=== PATIENT | male | born 1965 | race Caucasian/White ===

== ENCOUNTER 2023-03-28 16:39 | Emergency (ER) | payer OTHER, SELFPAY ==
[2023-03-28] VITALS (12 sets, daily range): BP systolic 128–198; BP diastolic 68–88; PULSE 74–85; RESP 10–17; TEMP 36.7; O2SAT 92–98; BMI 40.6
--- NOTE | 2023-03-28 17:13 | DI.RAD.S_ITS ---
PROCEDURE: XR CHEST 1V INDICATIONS: chest pain TECHNIQUE: One view of the chest was acquired. COMPARISON: [facility], CR, XR CHEST 1 VIEW, 09/20/2022, 23:26. FINDINGS: Surgical changes and devices: A thoracic spine stimulator is seen. Lungs and pleura: An incomplete inspiratory result is noted, causing a crowded appearance to the lung markings. Mild generalized interstitial prominence can be seen. No pneumothorax or significant pleural effusions are seen. Mediastinum: The cardiac contours are within normal limits. The aorta demonstrates calcification and tortuosity. Bones and chest wall: No suspicious bony lesions. Age-appropriate bony degenerative changes are seen. Overlying soft tissues appear unremarkable. IMPRESSION: Low lung volumes with mild interstitial prominence. Please consider mild pulmonary edema versus artifact. Dictated by: Rohith Chavez M.D. on 03/28/2023 at 16:55 Approved by: Rohith Chavez M.D. on 03/28/2023 at 16:56
[2023-03-28 17:42] LABS: Prothrombin Time 11.5 SECONDS (10.1-12.7)
[2023-03-28 17:45] LABS: PTT Partial Thromboplastin Tim 35 SECONDS (26-36)
[2023-03-28 17:47] LABS: Add Manual Diff / Slide Review NO; Basophils Absolute Auto 100 /uL (0-100); Basophils Percent Auto 0.8 % (0-2); Eosinophils Absolute Auto 300 /uL (0-450); Eosinophils Percent Auto 2.1 % (2-4); Hemoglobin 13.8 g/dL (13.5-17.5); Lymphocytes Absolute Auto 3900 /uL (1100-4500); Lymphocytes Percent Auto 24.7 % (25-40); Mean Corpuscular HGB Conc 34.6 % (30-36); Mean Corpuscular Hemoglobin 30.9 PG (26-34); Mean Corpuscular Volume 89.3 fL (80-100); Monocytes Absolute Auto 1000 /uL (0-900); Monocytes Percent Auto 6.3 % (3-14); Neutrophils Absolute Auto 10300 /uL (1500-7000); Neutrophils Percent Auto 66.1 % (50-75); Platelet Count 331 X10^3/uL (150-400); Red Blood Cell Count 4.48 X10^6/uL (4.5-5.9); Red Cell Distribution Width 13.1 % (11.6-14.8); White Blood Cell Count 15.6 X10^3/uL (4.5-11.0)
[2023-03-28 17:48] LABS: Alanine Aminotransferase 24 IU/L (<50); Albumin 4.6 g/dL (3.5-5.0); Albumin Globulin Ratio 1.2 (1.0-2.8); Alkaline Phosphatase 86 U/L (38-126); Aspartate Aminotransferase 23 IU/L (17-59); BUN Creatinine Ratio 15.7 (6-22); Bilirubin Total 0.7 mg/dL (0.2-1.3); Blood Urea Nitrogen 14 mg/dL (9-20); Calcium 8.7 mg/dL (8.4-10.2); Carbon Dioxide 30 mmol/L (22-32); Chloride 101 mmol/L (98-107); Creatine Kinase 129 U/L (55-170); Estimated Glomerular Filt Rate > 60 mL/min (>60); Globulin 3.9 g/dL (1.7-4.1); Glucose 100 mg/dL (70-100); HEMOLYSIS < 15 (0-50); Lipase 196 U/L (23-300); Magnesium 2.1 mg/dL (1.6-2.3); Potassium 3.8 mmol/L (3.4-5.1); Sodium 138 mmol/L (137-145); Total Protein 8.5 g/dL (6.3-8.2)
[2023-03-28 17:59] LABS: Troponin I < 0.012 ng/mL (0.01-0.034)
[2023-03-28] MEDS: MORPHINE 4 MG/ML INJ IV (18:18)
--- NOTE | 2023-03-28 19:18 | DI.CT.S_ITS ---
PROCEDURE: CT ANGIO CHEST PE PROTOCOL INDICATIONS: chest pain, back pain, hx PE, feels similar TECHNIQUE: After the administration of intravenous contrast, 2 mm thick sections acquired from the pulmonary apices to the posterior costophrenic angles. 3-dimensional maximum intensity projection (MIP) coronal and sagittal reformats were then acquired through the thorax. For radiation dose reduction, the following was used: automated exposure control, adjustment of mA and/or kV according to patient size. COMPARISON: None. FINDINGS: Image quality: Excellent. Pulmonary arteries: Pulmonary arteries are normal in size, and demonstrate no intraluminal filling defects to suggest central pulmonary embolism. Lungs and pleura: No pleural effusions or pneumothorax. Central and peripheral airways are patent. Bibasilar atelectasis. Lungs are otherwise clear. No focal airspace disease. No septal thickening or nodularity. Mediastinum: Heart size is normal, without pericardial effusion. No mediastinal or hilar adenopathy. Thoracic aorta is normal in caliber and enhancement. Esophagus is normal in caliber, without hiatal hernia. No evidence for acute right-sided heart strain. Bones and chest wall: No suspicious bony lesions. Ribs and thoracic spine appear intact throughout. Thyroid gland is unremarkable. No axillary or supraclavicular adenopathy. Abdomen: Visualized upper abdominal solid organs appear normal in the early arterial phase of enhancement. IMPRESSION: No acute pulmonary emboli. No acute cardiopulmonary abnormalities. No evidence for acute right-sided heart strain No acute airspace disease. Dictated by: Jc Layton M.D. on 03/28/2023 at 19:58 Approved by: Jc Layton M.D. on 03/28/2023 at 20:03
[2023-03-28] MEDS: HYDROMORPHONE 1 MG INJ IV (19:32)
--- NOTE | 2023-03-28 21:46 | ED.CHESTPAIN ---
HPI - Chest Pain General Chief Complaint: Chest Pain Stated Complaint: Chest/Back pain, hurts when breathing Time Seen by Provider: 03/28/23 18:17 Source: patient Mode of arrival: Ambulatory History of Present Illness HPI narrative: 57-year-old male smoker with history of extensive back surgeries including lumbar fusion and spinal stimulator presents with a few days of severe left posterior thoracic pain that wraps around his left side. His pain is sharp and stabbing and made worse by palpation deep breaths and motion including his left arm. He states that years ago he developed pulmonary emboli thought to be related to steroid injections for his back and is still anticoagulated. He does mention that on some levels this feels relatively similar. He denies any cough, hemoptysis, shortness of breath or chest pain. He is not dizzy nor weak or lightheaded. He denies any rash. Related Data Previous Rx's Medication Instructions Recorded diazepam 10 mg tablet (Valium) 10 mg PO TID PRN muscle spasm #20 03/28/23 tabs Allergies Allergy/AdvReac Type Severity Reaction Status Date / Time No Known Drug Allergies Allergy Verified 03/28/23 17:13 Review of Systems Review of Systems Narrative: GENERAL: Denies chills, fatigue, malaise, fever, sweats. HEENT: Denies sinus pain, ear pain, sore throat, difficulty swallowing, dizziness. RESPIRATORY: Denies dyspnea, cough, wheezing, hemoptysis, sputum. CARDIOVASCULAR: Denies chest pain, palpitations, orthopnea, edema, GASTROINTESTINAL: Denies nausea, vomiting, abdominal pain, diarrhea, constipation, melena. : Denies dysuria, frequency, incontinence, hematuria, urinary retention. MUSCULOSKELETAL: See HPI SKIN: Denies rash, skin lesions, or other NEUROLOGIC: Denies weakness, headache, numbness, change in speech, confusion, seizures, incoordination. PSYCHIATRIC: No concerning psychosocial issues. 12 point review of systems is negative except for those stated above Patient History Social History Smoking Status: Current some day smoker Smoking Status: Current some day smoker alcohol intake frequency: other Substance Use Type: does not use Exam Narrative Exam Narrative: GENERAL: [57] year old patient appears stated age. Well-developed patient, in mild distress. HEAD: Atraumatic. Normocephalic. EYES: Pupils equal round and reactive. Extraocular motions intact. No scleral icterus. No injection or drainage. ENT: Nose without bleeding, purulent drainage. Throat without erythema, tonsillar hypertrophy or exudate. Airway patent. NECK: Trachea midline. Non tender CARDIOVASCULAR: Regular rate and rhythm without murmurs, gallops, or rubs. RESPIRATORY: Clear to auscultation. Breath sounds equal bilaterally. No wheezes, rales, or rhonchi. GASTROINTESTINAL: Abdomen soft, non-tender, nondistended. EXTREMITIES: No edema or joint tenderness. BACK: Significant tenderness and palpable spasm medial to the left scapula, lateral to the midline, there is no midline pain, no rash, swelling, erythema. NEURO: AOx3. SKIN: No rash or erythema of visible areas Initial Vital Signs Initial Vital Signs: Vital Signs Temperature 98.1 F 03/28/23 17:09 Pulse Rate 85 03/28/23 17:09 Respiratory Rate 17 03/28/23 17:09 Blood Pressure 198/88 H 03/28/23 17:09 Pulse Oximetry 97 03/28/23 17:09 Oxygen Delivery Method Room Air 03/28/23 17:09 Course Orders Ordered: Discontinued Medications Diazepam (Diazepam 10 Mg/2 Ml Syringe) 5 mg IV NOW ONE Stop: 03/28/23 21:55 Last Admin: 03/28/23 22:04 Dose: 5 mg Documented By: GC Diazepam (Diazepam 10 Mg/2 Ml Syringe) 5 mg IV NOW ONE Stop: 03/28/23 22:31 Last Admin: 03/28/23 22:38 Dose: 5 mg Documented By: GC Hydromorphone HCl (Hydromorphone 1 Mg Inj) 1 mg IV NOW ONE Stop: 03/28/23 19:28 Last Admin: 03/28/23 19:32 Dose: 1 mg Documented By: GC Morphine Sulfate (Morphine 4 Mg/Ml Inj) 4 mg IV NOW ONE Stop: 03/28/23 17:54 Last Admin: 03/28/23 18:18 Dose: 4 mg Documented By: NR Vital Signs Vital signs: Vital Signs - 8 hr 03/29/23 00:01 03/28/23 21:30 03/28/23 21:30 Temperature 97.8 F Pulse Rate 74 77 Respiratory Rate 16 12 Blood Pressure 144/80 H 138/80 Pulse Oximetry 97 94 Oxygen Delivery Method Room Air 03/28/23 22:00 03/28/23 22:00 03/28/23 22:30 Temperature Pulse Rate 76 Respiratory Rate 14 Blood Pressure 147/77 H 144/80 H Pulse Oximetry 95 Oxygen Delivery Method 03/28/23 22:30 Temperature Pulse Rate 77 Respiratory Rate 10 L Blood Pressure Pulse Oximetry 94 Oxygen Delivery Method MDM - Chest Pain Lab Data 03/28/23 17:22 03/28/23 17:22 Labs: Lab Results 03/28/23 03/28/23 03/28/23 Range/Units 17:22 17:22 17:22 WBC 15.6 H (4.5-11.0) X10^3/uL RBC 4.48 L (4.5-5.9) X10^6/uL Hgb 13.8 (13.5-17.5) g/dL Hct 40.0 L (41-53) % MCV 89.3 (80-100) fL MCH 30.9 (26-34) PG MCHC 34.6 (30-36) % RDW 13.1 (11.6-14.8) % Plt Count 331 (150-400) X10^3/uL Neut % (Auto) 66.1 (50-75) % Lymph % (Auto) 24.7 L (25-40) % [place] % (Auto) 6.3 (3-14) % Eos % (Auto) 2.1 (2-4) % Baso % (Auto) 0.8 (0-2) % Neut # (Auto) 09042 H (2513-4594) /uL Lymph # (Auto) 3900 (9060-2216) /uL [place] # (Auto) 1000 H (0-900) /uL Eos # (Auto) 300 (0-450) /uL Baso # (Auto) 100 (0-100) /uL PT 11.5 (10.1-12.7) SECONDS INR 1.0 (0.9-1.3) APTT 35 (26-36) SECONDS Sodium 138 (137-145) mmol/L Potassium 3.8 (3.4-5.1) mmol/L Chloride 101 (98-107) mmol/L Carbon Dioxide 30 (22-32) mmol/L BUN 14 (9-20) mg/dL Creatinine 0.89 (0.66-1.25) mg/dL Estimated GFR > 60 (>60) mL/min BUN/Creatinine Ratio 15.7 (6-22) Glucose 100 (70-100) mg/dL Calcium 8.7 (8.4-10.2) mg/dL Magnesium 2.1 (1.6-2.3) mg/dL Total Bilirubin 0.7 (0.2-1.3) mg/dL AST 23 (17-59) IU/L ALT 24 (<50) IU/L Alkaline Phosphatase 86 (38-126) U/L Total Creatine Kinase 129 (55-170) U/L CK-MB (CK-2) TNP CK-MB (CK-2) Rel Index TNP Troponin I < 0.012 (0.01-0.034) ng/mL Total Protein 8.5 H (6.3-8.2) g/dL Albumin 4.6 (3.5-5.0) g/dL Globulin 3.9 (1.7-4.1) g/dL Albumin/Globulin Ratio 1.2 (1.0-2.8) Lipase 196 (23-300) U/L [facility] Narrative Medical decision making narrative: [57] year old patient presents with left thoracic back pain Multiple etiologies for patient's symptoms considered including, but not limited to: [Muscle spasm versus pulmonary emboli versus spontaneous hematoma versus] Prior Charts reviewed in our EMR Primary Historian: patient Labs reviewed and interpreted by myself: Elevated white blood cells without obvious source. No signs of anemia, electrolytes and renal function without significant abnormalities Imaging reviewed: CT angiogram demonstrates no acute pulmonary embolism, no evidence of right heart strain. Patient's history and physical exam are reassuring. There is an easily in significantly reproducible pain in the paraspinal musculature of the left upper back. No swelling, redness, induration or fluctuance. No evidence of rash to suggest shingles. No soft tissue swelling or subcutaneous emphysema Findings and discharge diagnosis discussed with patient/family followed by verbalization of understanding Return precautions discussed with patient/family whom verbalize understanding of diagnosis and plan Discharge Plan Departure Patient Disposition: Home Clinical Impression: Acute thoracic back pain Instructions: DI for Thoracic Back Pain Activity Restrictions/Additional Instructions: *You have been diagnosed with [acute thoracic back pain. As we discussed your history and physical exam are reassuring as are labs and CT scan. There is no evidence of blood clot, heart attack or other significant diagnosis requiring a specific or immediate intervention] *What to do: *Please continue to take your regular medications as directed. [x ] New medication prescriptions sent to your pharmacy: [facility] ] [ ] New medication written as a paper prescription [ ] No new medications given *Please follow up with your primary care provider in 2-3 days, call for an appointment. Let them know you were seen in the Emergency Department and that we ask that you be seen in follow up. We will electronically transmit a record of today's note if your PCP is in our system *If you do not have a primary care provider please contact the [facility] Resource line at [phone]. They will ask some questions about your medical history and help get you set up with a doctor in the community. *Return to Emergency Department if you should have any new, worsening or concerning symptoms, such as [fever greater than 101 F, shaking chills, worsening pain, persistent vomiting or other bothersome symptoms] Prescriptions: New diazepam [Valium] 10 mg tablet 10 mg PO TID PRN (Reason: muscle spasm) Qty: 20 0RF Stand Alone Forms: Patient Portal/API
[2023-03-28] MEDS: diazePAM 10 MG/2 ML SYRINGE 5 MG IV ×2 (22:04→22:38)
[2023-03-29 00:01] VITALS: BP 144/80; PULSE 74; RESP 16; TEMP 36.6; O2SAT 97
== END 2023-03-29 00:05 | disposition home or self-care (01) ==
PROVIDERS: Emergency Medicine; Emergency Provider Emergency Medicine
DX: M54.6 Pain in thoracic spine (principal); R07.9 Chest pain, unspecified
CPT/HCPCS: 36415; 71045; 71275; 80053; 82550; 83690; 83735; 84484; 85025; 85610; 85730; 93005; 96374; 96375; 96376; 99284; J1170; J2270; J3360; Q9967

== ENCOUNTER 2023-09-09 12:25 | Emergency (ER) | payer OTHER, SELFPAY ==
[2023-09-09 12:28] VITALS: BP 171/90; PULSE 57; RESP 22; TEMP 37.1; O2SAT 97; BMI 37.3
--- NOTE | 2023-09-09 12:35 | DI.RAD.S_ITS ---
PROCEDURE: XR SHOULDER LT MIN 2V INDICATIONS: felt a pop TECHNIQUE: 3 views of the shoulder were acquired. COMPARISON: None. FINDINGS: Bones: No fractures or dislocations. No suspicious bony lesions. Visualized ribs appear intact. Soft tissues: No suspicious soft tissue calcifications. IMPRESSION: No acute bony abnormality. Dictated by: Jose Verma M.D. on 09/09/2023 at 12:28 Approved by: Jose Verma M.D. on 09/09/2023 at 12:28
--- NOTE | 2023-09-09 13:57 | DI.CT.S_ITS ---
PROCEDURE: CT UE LT WO CON INDICATIONS: Left shoulder pain TECHNIQUE: Noncontrast 1-1.5 mm thick sections acquired from the acromioclavicular joint to the inferior scapula, with coronal and sagittal reformatting. COMPARISON: [facility], CR, XR SHOULDER LT MIN 2V, 09/09/2023, 12:37. FINDINGS: Image quality: Excellent. Bones: No acute osseous fracture or dislocation. Mild degenerative changes are seen in the glenohumeral joint with marginal osteophyte formation. There are moderate to severe degenerative changes at the acromioclavicular joint, with joint space narrowing, subchondral sclerosis and subchondral cystic changes, and marginal osteophyte formation. The included left-sided ribs are intact. Soft tissues: No significant glenohumeral effusion. The rotator cuff musculature is normal in bulk. However, the tendons, ligaments, labrum, and articular cartilages are not well evaluated with CT. No axillary lymphadenopathy. The included portions of the left lung are clear. IMPRESSION: 1. No acute osseous fracture. 2. 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 3. Mild glenohumeral osteoarthrosis. Approved by: Robert Ac M.D. on 09/09/2023 at 14:55
[2023-09-09] MEDS: MORPHINE 4 MG/ML INJ IM (14:10)
[2023-09-09] MEDS: CYCLOBENZAPRINE 10 MG TABLET PO (14:10)
[2023-09-09 14:56] VITALS: BP 172/77; PULSE 86; RESP 16; O2SAT 97
[2023-09-09] MEDS: diazePAM 5 MG TABLET 10 MG PO (14:59)
--- NOTE | 2023-09-09 15:45 | ED.UPPEXIN ---
HPI - Extremity Injury (Upper) <Rodri Donald PA-C - Last Filed: 09/09/23 15:59> General Chief Complaint: Extremity Injury, Upper Stated Complaint: L shoulder increasing pain/heard pop T-1/ Time Seen by Provider: 09/09/23 13:03 Source: patient Mode of arrival: Ambulatory History of Present Illness HPI narrative: 58-year-old male with chronic shoulder pain presents to the ED today for a sudden exacerbation of his left shoulder pain. Patient states that he was applying some tiger balm on his left shoulder when he felt a crunch and some tearing pain in his left shoulder. Patient took some Percocet at 10:00 a.m. this morning with little relief. 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 Patient receives routine injections for pain. Patient called his PCP Dr. Morales who sent him to the ED for further evaluation. Patient denies numbness, tingling, weakness. Patient takes tizanidine, Percocet for his aches and pains. Patient states that he was scheduled to have a CT sometime soon since he is unable to have an MRI due to multiple metal implants. Related Data Previous Rx's Medication Instructions Recorded diazepam 10 mg tablet (Valium) 10 mg PO TID PRN muscle spasm #20 03/28/23 tabs Allergies Allergy/AdvReac Type Severity Reaction Status Date / Time No Known Drug Allergies Allergy Verified 03/28/23 17:13 Review of Systems <Rodri Donald PA-C - Last Filed: 09/09/23 15:59> Constitutional Constitutional: Denies chills, Denies fatigue, Denies fever(s), Denies frequent falls, Denies lethargy and Denies weakness Eyes Eyes: Denies change in vision, Denies eye discharge, Denies irritation and Denies loss of vision ENT Ears, Nose, Mouth, and Throat: Denies change in voice, Denies dizziness, Denies neck pain, Denies sore throat and Denies throat swelling Cardiovascular Cardiovascular: Denies chest pain, Denies irregular heart rhythm, Denies lightheadedness, Denies palpitations, Denies dyspnea, Denies dyspnea on exertion and Denies orthopnea Respiratory Respiratory: Denies cough, Denies dyspnea, Denies dyspnea on exertion and Denies wheezing Gastrointestinal Gastrointestinal: Denies abdominal pain, Denies change in bowel habits, Denies diarrhea, Denies nausea and Denies vomiting Musculoskeletal Musculoskeletal: Denies neck pain and Denies numbness Comments: Left shoulder pain Integumentary/Breasts Skin/Breast: Denies pruritus, Denies erythema, Denies rash and Denies wounds Neurologic Neurologic: Denies behavioral changes, Denies confusion, Denies dizziness, Denies frequent falls, Denies loss of vision, Denies numbness and Denies weakness Psychiatric Psychiatric: Denies anxiety, Denies behavioral changes, Denies confusion, Denies depression, Denies homicidal ideation and Denies suicidal ideation Endocrine Endocrine: Denies fatigue, Denies flushing and Denies palpitations Hematologic/Lymphatic Hematologic/Lymphatic: Denies easy bruising Allergic/Immunologic Allergic/Immunologic: Denies urticaria, Denies throat swelling and Denies wheezing Patient History <Rodri Donald PA-C - Last Filed: 09/09/23 15:59> Social History Smoking Status: Current some day smoker Smoking Status: Current some day smoker tobacco type: cigarettes alcohol intake frequency: other Substance Use Type: does not use Exam <Rodri Donald PA-C - Last Filed: 09/09/23 15:59> Narrative Exam Narrative: Const General:?cooperative, healthy appearing and comfortable [facility] Head:?normal to inspection Ears:?hearing grossly normal bilaterally Nose:?external nose normal Face and sinus:?normal facial exam and sinuses nontender Mouth:?oral mucosae normal Throat:?posterior oropharynx normal Eyes General:?appearance normal, both eyes and all related structures Neck Neck:?normal visual inspection and no lymphadenopathy noted Resp Effort & Inspection:?normal respiratory effort Auscultation:?clear to auscultation bilaterally Cardio Rate:?regular rate Rhythm:?regular rhythm Musculoskeletal Tenderness to palpation of acromioclavicular region. No bruising or deformities. Limited range of motion due to pain. Strength and sensation intact. Patient is neurovascularly intact. Neuro General:?patient alert, patient awake and patient oriented x3 Initial Vital Signs Initial Vital Signs: Vital Signs Temperature 98.7 F 09/09/23 12:28 Pulse Rate 57 L 09/09/23 12:28 Respiratory Rate 22 09/09/23 12:28 Blood Pressure 171/90 H 09/09/23 12:28 Pulse Oximetry 97 09/09/23 12:28 Oxygen Delivery Method Room Air 09/09/23 12:28 <Verito Valladares MD - Last Filed: 09/09/23 16:15> Initial Vital Signs Initial Vital Signs: Vital Signs Temperature 98.7 F 09/09/23 12:28 Pulse Rate 57 L 09/09/23 12:28 Respiratory Rate 22 09/09/23 12:28 Blood Pressure 171/90 H 09/09/23 12:28 Pulse Oximetry 97 09/09/23 12:28 Oxygen Delivery Method Room Air 09/09/23 12:28 Course <Rodri Donlad PA-C - Last Filed: 09/09/23 15:59> Orders Ordered: ED Orders 09/09/23 12:35 XR shoulder LT min 2V Stat 09/09/23 13:57 CT UE LT wo con Stat Discontinued Medications Cyclobenzaprine HCl (Cyclobenzaprine 10 Mg Tablet) 10 mg PO NOW ONE Stop: 09/09/23 13:58 Last Admin: 09/09/23 14:10 Dose: 10 mg Documented By: STEVEN Diazepam (Diazepam 5 Mg Tablet) 10 mg PO NOW ONE Stop: 09/09/23 14:49 Last Admin: 09/09/23 14:59 Dose: 10 mg Documented By: STEVEN Morphine Sulfate (Morphine 4 Mg/Ml Inj) 4 mg IM NOW ONE Stop: 09/09/23 13:58 Last Admin: 09/09/23 14:10 Dose: 4 mg Documented By: STEVEN Vital Signs Vital signs: Vital Signs - 8 hr 09/09/23 12:28 09/09/23 14:56 Temperature 98.7 F Pulse Rate 57 L 86 Respiratory Rate 22 16 Blood Pressure 171/90 H 172/77 H Pulse Oximetry 97 97 Oxygen Delivery Method Room Air Room Air <Verito Valladares MD - Last Filed: 09/09/23 16:15> Orders Ordered: ED Orders 09/09/23 12:35 XR shoulder LT min 2V Stat 09/09/23 13:57 CT UE LT wo con Stat Discontinued Medications Cyclobenzaprine HCl (Cyclobenzaprine 10 Mg Tablet) 10 mg PO NOW ONE Stop: 09/09/23 13:58 Last Admin: 09/09/23 14:10 Dose: 10 mg Documented By: STEVEN Diazepam (Diazepam 5 Mg Tablet) 10 mg PO NOW ONE Stop: 09/09/23 14:49 Last Admin: 09/09/23 14:59 Dose: 10 mg Documented By: STEVEN Morphine Sulfate (Morphine 4 Mg/Ml Inj) 4 mg IM NOW ONE Stop: 09/09/23 13:58 Last Admin: 09/09/23 14:10 Dose: 4 mg Documented By: STEVEN Vital Signs Vital signs: Vital Signs - 8 hr 09/09/23 12:28 09/09/23 14:56 Temperature 98.7 F Pulse Rate 57 L 86 Respiratory Rate 22 16 Blood Pressure 171/90 H 172/77 H Pulse Oximetry 97 97 Oxygen Delivery Method Room Air Room Air MDM - Extremity Injury (Upper) <Rodri Donald PA-C - Last Filed: 09/09/23 15:59> MDM Narrative Medical decision making narrative: 58-year-old male with chronic shoulder pain presents to the ED today for a sudden exacerbation of his left shoulder pain. Concern for fracture/dislocation versus bursitis versus frozen shoulder versus rotator cuff tear versus other musculoskeletal pathology versus other. Obtained x-ray which shows no fractures or dislocations. Obtain CT which shows moderate to severe acromioclavicular osteoarthrosis, mild glenohumeral osteoarthrosis. No fractures identified on CT. Patient's symptoms improved with morphine, Flexeril, Valium. Recommend continuing Percocet, tizanidine, applying lidocaine patches, applying heat packs, rest. Recommend follow-up with Dr. Saravia. ED return precautions discussed with patient. Patient verbalized understanding. Medical records reviewed: Yes Discharge Plan Departure Patient Disposition: Home Clinical Impression: Acute shoulder pain Qualifiers: Laterality: left Qualified Code(s): M25.512 - Pain in left shoulder Instructions: DI for Shoulder Sprain Activity Restrictions/Additional Instructions: You were evaluated in the ED today for left-sided shoulder pain. Your x-ray did not show any fractures or dislocations. Your CT shows acromioclavicular and glenohumeral osteoarthrosis. Please continue to take Tylenol, muscle relaxants, apply lidocaine patches, apply heat packs. Please rest the shoulder for the next few days, gradually and gently increasing range of movement. Please follow-up with your PCP Dr. Morales and your site acquisition specialist Dr. Johana Moore for further evaluation. Return to the ED if you have worsening symptoms, numbness, tingling, weakness. Prescriptions: No Action diazepam [Valium] 10 mg tablet 10 mg PO TID PRN (Reason: muscle spasm) Qty: 20 0RF Stand Alone Forms: Patient Portal/API ED Sign-out <Verito Valladares MD - Last Filed: 09/09/23 16:15> Cosign ED Attending Cosignature Attestation: I did not see this patient. I was available all times for consultation.
== END 2023-09-09 15:45 | disposition home or self-care (01) ==
PROVIDERS: Emergency Provider Student in an Organized Health Care Education/Training Program
DX: M25.512 Pain in left shoulder (principal); M19.012 Primary osteoarthritis, left shoulder
CPT/HCPCS: 73030; 73200; 96372; 99284; J2270

== ENCOUNTER 2024-12-06 22:41 | Emergency (ER) | payer MEDICARE, SELFPAY ==
[2024-12-06 22:49] VITALS: BP 177/91; PULSE 85; RESP 17; TEMP 36.2; O2SAT 99; BMI 35.5
--- NOTE | 2024-12-07 01:49 | ED_ITS ---
HPI - Allergic Reaction General Chief complaint: Allergic Reaction Stated complaint: having an allergic reaction to ABO Time Seen by Provider: 12/07/24 01:49 Source: patient Mode of arrival: Ambulatory History of Present Illness HPI narrative: 59-year-old male without any significant past medical history presents to the emergency department from home for evaluation of possible allergic reaction, patient states that a proximally 3 days ago he was taking amoxicillin for a dental infection noticed restless afternoon, states that since then he has been feeling flushed hot itchy of the face, however he denies any difficulty breathing swallowing, at time of evaluation patient is speaking full sentences protecting airway no voice changes no stridor no trismus. Patient states that he has been taking the amoxicillin for dental infection. Related Data Previous Rx's Medication Instructions Recorded diazepam 10 mg tablet (Valium) 10 mg PO TID PRN muscle spasm #20 03/28/23 tabs clindamycin HCl 150 mg capsule 450 mg (3 x 150 mg) PO TID 1 week 12/07/24 #63 caps epinephrine 0.3 mg/0.3 mL 0.3 mg (0.3 mL) IM Q5-15M PRN 12/07/24 injection, auto-injector (EpiPen) anaphylaxis #2 ea famotidine 20 mg tablet (Pepcid) 20 mg PO DAILY 5 days #5 tabs 12/07/24 prednisone 20 mg tablet 40 mg (2 x 20 mg) PO DAILY 5 days 12/07/24 #10 tabs Allergies Allergy/AdvReac Type Severity Reaction Status Date / Time amoxicillin AdvReac Rash Verified 12/06/24 22:49 doxycycline AdvReac Rash Verified 12/06/24 22:54 Review of Systems Review of Systems Narrative: General: Denies fever, chills, weight loss HEENT: Denies headache, eye drainage, eye irritation, head trauma, sore throat, voice change Cardiovascular: Denies any chest pain, palpitations, shortness of breath, tachycardia Respiratory: Denies any shortness of breath, cough, wheeze, stridor GI/: Denies any abdominal pain, nausea, vomiting, diarrhea, bright red blood per rectum, melanotic stools, urinary frequency, urinary retention, dysuria, hematuria MSK: Denies any joint pain, muscle pains, swelling Skin: Allergic reaction/urticaria rash Neuro: Denies any headache, lightheadedness, dizziness, fainting, weakness Psych: Denies SI/HI Patient History Social History Smoking Status: Current some day smoker Smoking Status: Current some day smoker tobacco type: cigarettes alcohol intake frequency: other Exam Narrative Exam Narrative: General: Cooperative, comfortable, well-developed, not in acute distress HEENT: Normocephalic, atraumatic, PERRLA, normal sclera, eyelids normal, patient is speaking full sentences protecting airway no voice changes no stridor no trismus posterior oropharynx is clear without any signs of obstruction uvula midline Neck: Active full range of motion, atraumatic Chest: Normal to inspection, negative crepitus, no overlying erythema ecchymosis Respiratory: Normal respiratory effort, not in acute respiratory distress, clear to auscultation bilaterally negative cough, wheeze, tachypnea, rhonchi, rales Cardiology: Regular rate rhythm negative gallop, murmur, rubs GI/: Normal to inspection, soft, nonrigid, no tenderness to palpation, exam deferred MSK: Full range of active range of motion of all 4 extremities, atraumatic Skin:Urticarial blanchable noted to the patient's face, however not affecting the mucosal membrane Neuro: Alert awake oriented x3, moves all 4 extremities spontaneously, cranial nerves intact, able to answer all questions appropriately follows commands appropriately Psych: Cooperative, negative suicidal or homicidal ideations Initial Vital Signs Initial Vital Signs: Vital Signs Temperature 97.2 F L 12/06/24 22:49 Pulse Rate 85 12/06/24 22:49 Respiratory Rate 17 12/06/24 22:49 Blood Pressure 177/91 H 12/06/24 22:49 Pulse Oximetry 99 12/06/24 22:49 Oxygen Delivery Method Room Air 12/06/24 22:49 Course Orders Ordered: Discontinued Medications Diphenhydramine HCl (Diphenhydramine 25 Mg Tablet) 25 mg PO NOW ONE Stop: 12/07/24 01:56 Last Admin: 12/07/24 02:00 Dose: 25 mg Documented By: STEWART Famotidine (Famotidine 20 Mg Tablet) 20 mg PO NOW ONE Stop: 12/07/24 01:57 Last Admin: 12/07/24 01:59 Dose: 20 mg Documented By: STEWART Prednisone (Prednisone 20 Mg Tablet) 40 mg PO NOW ONE Stop: 12/07/24 01:56 Last Admin: 12/07/24 01:59 Dose: 40 mg Documented By: STEWART Vital Signs Vital signs: Vital Signs - 8 hr 12/06/24 22:49 12/07/24 01:50 Temperature 97.2 F L Pulse Rate 85 81 Respiratory Rate 17 20 Blood Pressure 177/91 H 166/83 H Pulse Oximetry 99 95 Oxygen Delivery Method Room Air Room Air MDM - Allergic Reaction Differential Diagnosis Differential diagnosis: Likely anaphylaxis, allergic reaction and urticaria MDM Narrative Medical decision making narrative: 59-year-old male without any significant past medical history comes in to the ED for allergic reaction rash states he notices earlier today after being on amoxicillin for 3 days for dental infection. States that he has tolerated this medication in the past no known allergic reactions to antibiotics. He did not take any medication prior to arrival. States that he has not having any difficulty breathing on exam patient with urticarial rash noted to the face but spares mucosal membrane conjunctiva no voice changes no stridor no trismus protecting airway tolerating secretions patient was given steroids Pepcid Benadryl with improvement of symptoms he was changed to clindamycin for his dental infection he was instructed follow up with his primary care doctor and will be sent home with steroids Benadryl EpiPen for his allergic reaction Discharge Plan Departure Patient Disposition: Home Clinical Impression: Allergic reaction Instructions: DI for Hives Activity Restrictions/Additional Instructions: Please follow up with the primary care doctor Please read the discharge instructions sheet carefully and bring all papers to all doctor follow-up visits, as it may contain information that your doctor may want to see. Disease processes change and evolve, if your symptoms worsen or if you develop any new symptoms that are concerning to you please return for evaluation. Your evaluation today does not show any evidence of any life- threatening/serious illnesses requiring admission to the hospital or surgery. Please follow-up with your doctor for re-evaluation in approximately 1 day. Seek immediate medical attention for any worrisome symptoms. *If you do not have a primary care provider please contact the [facility] Resource line at [phone]. They will ask some questions about your medical history and help get you set up with a doctor in the community. Prescriptions: New prednisone 20 mg tablet 40 mg PO DAILY 5 Days Qty: 10 0RF famotidine [Pepcid] 20 mg tablet 20 mg PO DAILY 5 Days Qty: 5 0RF clindamycin HCl 150 mg capsule 450 mg PO TID 7 Days Qty: 63 0RF epinephrine [EpiPen] 0.3 mg/0.3 mL auto-injector 0.3 mg IM Q5-15M PRN (Reason: anaphylaxis) Qty: 2 0RF Rx Instructions: do not exceed 3 doses per episode No Action diazepam [Valium] 10 mg tablet 10 mg PO TID PRN (Reason: muscle spasm) Qty: 20 0RF Stand Alone Forms: Patient Portal/API/Survey
[2024-12-07 01:50] VITALS: BP 166/83; PULSE 81; RESP 20; O2SAT 95
[2024-12-07] MEDS: FAMOTIDINE 20 MG TABLET PO (01:59)
[2024-12-07] MEDS: predniSONE 20 MG TABLET 40 MG PO (01:59)
[2024-12-07 02:00] VITALS: BP 152/76; PULSE 68; RESP 18; O2SAT 96
[2024-12-07] MEDS: diphenhydrAMINE 25 MG TABLET PO (02:00)
[2024-12-07 02:30] VITALS: BP 145/74; PULSE 77; RESP 18; O2SAT 95
== END 2024-12-07 02:47 | disposition home or self-care (01) ==
PROVIDERS: Emergency Provider Student in an Organized Health Care Education/Training Program
DX: T78.40XA Allergy, unspecified, initial encounter (principal); L50.9 Urticaria, unspecified
CPT/HCPCS: 99283; A9270

== ENCOUNTER 2024-12-07 08:33 | Emergency (ER) | payer MEDICARE, SELFPAY ==
[2024-12-07] VITALS (10 sets, daily range): BP systolic 132–160; BP diastolic 71–86; PULSE 93–115; RESP 14–19; TEMP 36.5; O2SAT 93–98; BMI 35.5
--- NOTE | 2024-12-07 09:14 | ED.RECABL ---
HPI - Recheck/Abnormal Lab/Rx General Chief Complaint: Recheck/Abnormal Lab/Rx Stated Complaint: Not feeling better since this mornings ER visit Time Seen by Provider: 12/07/24 09:14 Source: patient, RN notes reviewed and old records reviewed Mode of arrival: Family Vehicle Limitations: no limitations History of Present Illness HPI narrative: 59-year-old male on Eliquis represents after having possible allergic reaction to an antibiotic. Has been taking amoxicillin for a dental infection, was on his 3rd days' worth. Symptoms started yesterday during the early evening. Patient presented with complaint of rash overnight was seen at about 2:00 a.m. in the morning today patient received Benadryl Pepcid and prednisone at that time. Patient represents stating that he has not improved. Patient states he feels like it might be a little bit tight in his throat. He felt a little tingling around his lips. He did take Benadryl at about 4 5:00 a.m. this morning has not taken any additional medications or been able to fill his prescriptions for the prednisone or Pepcid yet. Patient states it does not feel like it is rapidly worsening. No fevers. Describes little bit of chest tightness earlier. No cough. No nausea or vomiting. No diarrhea. Rashes extended a little bit to his upper torso and he feels very itchy on his back but has not visualize that area. Does not feel like the rashes rapidly spreading. He has had some allergies to erythromycin and doxycycline in the past and states he had a rash with warfarin in the past. Patient does use tobacco, occasional alcohol, no recreational drugs. Related Data Previous Rx's Medication Instructions Recorded diazepam 10 mg tablet (Valium) 10 mg PO TID PRN muscle spasm #20 03/28/23 tabs clindamycin HCl 150 mg capsule 450 mg (3 x 150 mg) PO TID 1 week 12/07/24 #63 caps epinephrine 0.3 mg/0.3 mL 0.3 mg (0.3 mL) IM Q5-15M PRN 12/07/24 injection, auto-injector (EpiPen) anaphylaxis #2 ea famotidine 20 mg tablet (Pepcid) 20 mg PO DAILY 5 days #5 tabs 12/07/24 prednisone 20 mg tablet 40 mg (2 x 20 mg) PO DAILY 5 days 12/07/24 #10 tabs Allergies Allergy/AdvReac Type Severity Reaction Status Date / Time amoxicillin AdvReac Rash Verified 12/07/24 09:01 doxycycline AdvReac Rash Verified 12/07/24 09:01 Review of Systems Review of Systems ROS Unobtainable: All systems reviewed & are unremarkable except as noted in HPI and below Patient History Social History Smoking Status: Current some day smoker Smoking Status: Current some day smoker tobacco type: cigarettes alcohol intake frequency: other Exam Narrative Exam Narrative: GEN: well nourished, well appearing male, alert and oriented x 3, patient appears to be in mild distress. HEENT: Atraumatic, pupils are equal round reactive to light, extraocular movements are intact, nares are clear, TMs are clear with no fluid, there is no conjunctival pallor. Throat is clear without any exudates, erythema, tonsillar enlargement or uvular deviation, patient was patchy erythematous raised wheals over his face neck and to the level of the clavicles. No oropharyngeal involvement is appreciated no swelling of the lips tongue or airway noted. Patient is slightly hoarse. No difficulty with secretions. HEART: Regular rate and rhythm without murmur, clicks, rubs. No carotid bruits, pulses are equal in upper and lower extremities LUNGS:Lungs clear to auscultation, no wheezes, rales, crackles, chest moves symmetrically ABD:bowel sounds normal, soft, non-tender, no guarding, rebound, rigidity, no masses noted, no hepatosplenomegaly MSCL: Non-tender, no muscle atrophy, muscles strength 5/5 upper and lower extremities, full range of motion, normal gait NEURO:CN 2-12 intact, sensation normal SKIN: See above no other rash noted on extremities, back or lower torso. Initial Vital Signs Initial Vital Signs: Vital Signs Temperature 97.7 F 12/07/24 08:52 Pulse Rate 108 H 12/07/24 08:52 Respiratory Rate 19 12/07/24 08:52 Blood Pressure 135/86 12/07/24 08:52 Pulse Oximetry 96 12/07/24 08:52 Oxygen Delivery Method Room Air 12/07/24 08:52 Course Orders Ordered: Discontinued Medications Diphenhydramine HCl (Diphenhydramine 50 Mg/Ml Vial) 50 mg IV NOW ONE Stop: 12/07/24 09:24 Last Admin: 12/07/24 09:32 Dose: 50 mg Documented By: Epinephrine HCl (Epinephrine 1 Mg/Ml) 0.5 mg IM NOW ONE Stop: 12/07/24 10:26 Last Admin: 12/07/24 10:31 Dose: 0.5 mg Documented By: Famotidine (Famotidine 20 Mg/2 Ml Vial) 20 mg IV NOW BAKARI Last Admin: 12/07/24 09:32 Dose: 20 mg Documented By: Methylprednisolone (Methylprednisolone 125 Mg/2 Ml Vial) 125 mg IV NOW ONE Stop: 12/07/24 09:24 Last Admin: 12/07/24 09:32 Dose: 125 mg Documented By: Oxycodone/Acetaminophen (Oxycodone/Acetaminophen 5/325 Tablet) 2 tab PO NOW ONE Stop: 12/07/24 11:23 Last Admin: 12/07/24 11:34 Dose: 2 tab Documented By: Vital Signs Vital signs: Vital Signs - 8 hr 12/07/24 11:00 12/07/24 11:30 12/07/24 12:00 Pulse Rate 101 H 114 H 115 H Respiratory Rate 19 16 Blood Pressure 154/78 H Pulse Oximetry 97 96 95 Oxygen Delivery Method Room Air MDM - Recheck/Abnormal Lab/Rx MDM Narrative Medical decision making narrative: 59-year-old male sounds like he was having an allergic reaction potentially to amoxicillin did receive oral prednisone, Benadryl and Pepcid yesterday patient states symptoms started to slowly worsened a little bit this morning. He describes a slow course of events with symptoms starting yesterday during the early evening. Patient given Solu-Medrol, Pepcid and Benadryl IV. On recheck patient's symptoms are not significantly persisting but still present he is still little bit hoarse. After discussion we will go ahead and give a dose of IM epinephrine as he was going to little bit of hoarseness and tightness in his throat although not progressing has not had any improvement with IV medications. Discussed with the patient he feels comfortable with this plan. On recheck patient feels improved. Plan for patient to return home to continue his medications. We would like for patient to monitor little bit longer but he has a stated that he would like to leave. Patient did have dose of home pain medication while in department. Discharge Plan Departure Patient Disposition: Home Clinical Impression: Allergic reaction Activity Restrictions/Additional Instructions: Fill your prescriptions and take these as prescribed. Make sure you keep an EpiPen available to for future purposes. We typically watch patient's for at least 2-4 hours after receiving epinephrine. You have elected to leave a little bit before this timeframe. Follow up with your physician for recheck. Please return for new or worsening symptoms, increasing swelling, rapidly worsening rash, any blisters that are sloughing or breaking open, new swelling of your lips, tongue or airway, difficulty with breathing, new chest pain, persistent vomiting, black or bloody stools or other new or concerning changes. Prescriptions: No Action diazepam [Valium] 10 mg tablet 10 mg PO TID PRN (Reason: muscle spasm) Qty: 20 0RF prednisone 20 mg tablet 40 mg PO DAILY 5 Days Qty: 10 0RF famotidine [Pepcid] 20 mg tablet 20 mg PO DAILY 5 Days Qty: 5 0RF clindamycin HCl 150 mg capsule 450 mg PO TID 7 Days Qty: 63 0RF epinephrine [EpiPen] 0.3 mg/0.3 mL auto-injector 0.3 mg IM Q5-15M PRN (Reason: anaphylaxis) Qty: 2 0RF Rx Instructions: do not exceed 3 doses per episode Referrals: Seema Morales MD [Primary Care Provider] - Stand Alone Forms: Patient Portal/API/Survey
--- NOTE | 2024-12-07 09:26 | PC.NURSE ---
Pt speaking in full sentences. Feels like throat is closing up. No rash observed to back or chest. Skin is clammy and warm. MD in room.
[2024-12-07] MEDS: diphenhydrAMINE 50 MG/ML VIAL IV (09:32)
[2024-12-07] MEDS: methylPREDNISolone 125 MG/2 ML VIAL IV (09:32)
[2024-12-07] MEDS: FAMOTIDINE 20 MG/2 ML VIAL IV (09:32)
--- NOTE | 2024-12-07 10:17 | PC.NURSE ---
Pt up ambulating in guillory. Wants something for pain. aware.
--- NOTE | 2024-12-07 10:27 | PC.NURSE ---
Pt says that he is feeling the same as before, not worse. MD in room with pt.
[2024-12-07] MEDS: EPINEPHrine 1 MG/ML 0.5 MG IM (10:31)
--- NOTE | 2024-12-07 10:59 | PC.NURSE ---
Pt states that he still feels the same. No change from Epi injection. notified.
[2024-12-07] MEDS: OXYCODONE/ACETAMINOPHEN 5/325 TABLET 2 TAB PO (11:34)
--- NOTE | 2024-12-07 12:17 | PC.NURSE ---
Pt says that he wants to go home now. Is feeling better, breathing better and less itchy. Wants to go home. MD notified.
== END 2024-12-07 12:23 | disposition home or self-care (01) ==
PROVIDERS: Emergency Provider Emergency Medicine; PCP Internal Medicine
DX: T78.40XA Allergy, unspecified, initial encounter (principal)
CPT/HCPCS: 36415; 96372; 96374; 96375; 99284; J0171; J1200; J2919

== ENCOUNTER 2025-03-30 10:13 | Emergency (ER) | payer MEDICARE, SELFPAY ==
[2025-03-30 10:18] VITALS: BP 151/93; PULSE 105; RESP 20; TEMP 36.3; O2SAT 100; BMI 36.7
--- NOTE | 2025-03-30 10:25 | DI.RAD.S_ITS ---
PROCEDURE: XR SHOULDER LT MIN 2V INDICATIONS: pain TECHNIQUE: 3 views of the shoulder were acquired. COMPARISON: [facility], CR, XR SHOULDER LT MIN 2V, 09/09/2023, 12:37. FINDINGS: Bones: No acute fractures or dislocations. No suspicious bony lesions. Visualized ribs appear intact. At least moderate degenerative changes are seen at the acromioclavicular joint. Soft tissues: No suspicious soft tissue calcifications. IMPRESSION: No acute osseous abnormality. If there is continued clinical concern or persistent symptoms, repeat radiographs or cross-sectional imaging (e.g. CT, MRI) may be helpful for further evaluation. Approved by: Robert Ac M.D. on 03/30/2025 at 11:15
--- NOTE | 2025-03-30 10:34 | ED.UPPEXIN ---
HPI - Extremity Injury (Upper) General Chief Complaint: Extremity Injury, Upper Stated Complaint: Lt side arm locked,pain, abd pain Time Seen by Provider: 03/30/25 10:19 Source: patient Mode of arrival: Ambulatory History of Present Illness HPI narrative: 59-year-old gentleman with history of chronic left shoulder pain with a history of bursitis, frozen shoulder, seen by Orthopedics few months ago with the injection that lasted for a few months presents today with ongoing acute on chronic shoulder pain for the past week and a half getting worse at this time today. Patient reports it starts in the left shoulder and radiates down to the side of the deltoid down to the elbow were it becomes painful to move on range of motion in all directions, tried tiger balm, with no significant relief of symptoms at this time. Other than what is stated 14 point review of system is negative Related Data Previous Rx's ?Medication ?Instructions ?Recorded diazepam 10 mg tablet (Valium) 10 mg PO TID PRN muscle spasm #20 03/28/23 tabs epinephrine 0.3 mg/0.3 mL 0.3 mg (0.3 mL) IM Q5-15M PRN 12/07/24 injection, auto-injector (EpiPen) anaphylaxis #2 ea diazepam 10 mg tablet (Valium) 10 mg PO TID PRN muscle spasm #20 03/30/25 tabs diclofenac potassium 50 mg tablet 50 mg PO TID PRN pain #30 tabs 03/30/25 hydrocodone 5 mg-acetaminophen 325 1 tab PO Q4-6H PRN pain #20 tabs 03/30/25 mg tablet prednisone 20 mg tablet 20 mg PO BID #10 tabs 03/30/25 Allergies Allergy/AdvReac Type Severity Reaction Status Date / Time amoxicillin AdvReac Rash Verified 03/30/25 10:22 doxycycline AdvReac Rash Verified 03/30/25 10:22 Review of Systems Review of Systems ROS Unobtainable: All systems reviewed & are unremarkable except as noted in HPI and below Patient History Social History Smoking Status: Former smoker Smoking Status: Former smoker tobacco type: cigarettes alcohol intake frequency: other Exam Narrative Exam Narrative: GENERAL: [59] year old patient appears stated age. Well-developed patient, in mild distress. HEAD: Atraumatic. Normocephalic. EYES: Pupils equal round and reactive. Extraocular motions intact. No scleral icterus. No injection or drainage. NECK: Trachea midline. Non tender CARDIOVASCULAR: Regular rate and rhythm without murmurs, gallops, or rubs. RESPIRATORY: Clear to auscultation. Breath sounds equal bilaterally. No wheezes, rales, or rhonchi. EXTREMITIES: No edema or joint tenderness. Dec ROM in all directions with L shoulder, motor, sensory intact +2 rad pulse cap refill<2secs BACK: Nontender without deformity or crepitance. No flank tenderness. NEURO: AOx3. SKIN: No rash or erythema of visible areas Initial Vital Signs Initial Vital Signs: Vital Signs Temperature 97.4 F L 03/30/25 10:18 Pulse Rate 105 H 03/30/25 10:18 Respiratory Rate 20 03/30/25 10:18 Blood Pressure 151/93 H 03/30/25 10:18 Pulse Oximetry 100 03/30/25 10:18 Oxygen Delivery Method Room Air 03/30/25 10:18 Procedures [facility] [place] Procedure Name of Procedure: L steroid shoulder injection Side (if applicable): left Location: shoulder Time out performed: Yes Technique/Description of procedure performed: Patient prepped and draped in sterile fashion using 22-,1/2 1 gauge needle with a 5 mL syringe patient was injected. Patient tolerated procedure with no complications 0 mL estimated blood loss Patient tolerated procedure: Well Complications: none Course Orders Ordered: ED Orders 03/30/25 10:25 XR shoulder LT 2+ views Stat Vital Signs Vital signs: Vital Signs - 8 hr 03/30/25 10:18 Temperature 97.4 F L Pulse Rate 105 H Respiratory Rate 20 Blood Pressure 151/93 H Pulse Oximetry 100 Oxygen Delivery Method Room Air MDM - Extremity Injury (Upper) Imaging Data Extremity x-ray #1: Radiologist's Impression: [address] [address] [address] Scan Report Signed Patient: Leyla Vang MR#: [id number] : 02/17/1949 Acct:[id number] Age/Sex: 76 / F Date of Service: 03/30/25 Loc: ED Accession Number: [id number] Procedure: CT pelvis wo con Ordering Provider: Shmuel Christine D.O. PROCEDURE: CT PEL WO CON INDICATIONS: L hip pain TECHNIQUE: Noncontrast 3 mm axial sections acquired through the bony pelvis, with coronal and sagittal reformatting. For radiation dose reduction, the following was used: automated exposure control, adjustment of mA and/or kV according to patient size. COMPARISON: [facility], CT, CT CHEST ABD PEL W CON, 11/11/2023, 14:33. [facility], CR, XR HIP W PEL LT 2V, 03/30/2025, 9:35. FINDINGS: Image quality: Excellent. Bones: There is a mildly comminuted and displaced fracture of the left proximal femoral shaft. The proximal subtle fractures at the level of the lesser trochanter, which is displaced proximally. The dominant humeral shaft component is displaced inferior medially with mild overriding of fracture fragments. No additional pelvic fracture is seen. Soft tissues: Soft tissue edema is seen surrounding the proximal femoral fracture site. The articular cartilages, ligaments, tendons are not well evaluated with CT. Visualized musculature is age-appropriate in bulk. Mildly prominent stool in the rectum. Colonic diverticulosis is noted. Non-obstructing calculus at the inferior pole the right kidney. IMPRESSION: Comminuted displaced fracture of the left proximal femur with proximal extent at the level of the lesser trochanter, which is displaced proximally. MDM Narrative Medical decision making narrative: Vital signs, nurse triage note, medication list, previous ER visits, and all imaging studies reviewed. X-ray showed no acute osseous abnormality. Status post steroid left shoulder injection here with Kenalog and 2% lidocaine without epi for which patient tolerated procedure with no complications. Differential diagnosis include rotator cuff tendonitis, tear, ligament injury, arthritis, dislocation, fracture. DC home on diclofenac [place] and prednisone and to follow up with PCP Discharge Plan Departure Patient Disposition: Home Clinical Impression: Upper extremity pain Qualifiers: Laterality: left Qualified Code(s): M79.602 - Pain in left arm Instructions: DI for Shoulder Pain Activity Restrictions/Additional Instructions: Return with new or worsening symptoms. Take your medicines as directed. Follow up with PCP and/or Orthopedics at years next scheduled appointment. Prescriptions: New diclofenac potassium 50 mg tablet 50 mg PO TID PRN (Reason: pain) Qty: 30 0RF hydrocodone-acetaminophen 5-325 mg tablet 1 tab PO Q4-6H PRN (Reason: pain) Qty: 20 0RF prednisone 20 mg tablet 20 mg PO BID Qty: 10 0RF diazepam [Valium] 10 mg tablet 10 mg PO TID PRN (Reason: muscle spasm) Qty: 20 0RF No Action diazepam [Valium] 10 mg tablet 10 mg PO TID PRN (Reason: muscle spasm) Qty: 20 0RF epinephrine [EpiPen] 0.3 mg/0.3 mL auto-injector 0.3 mg IM Q5-15M PRN (Reason: anaphylaxis) Qty: 2 0RF Rx Instructions: do not exceed 3 doses per episode Referrals: Seema Morales MD [Primary Care Provider, Internal Medicine] Stand Alone Forms: Patient Portal/API
[2025-03-30] MEDS: KETOROLAC 30 MG/ML VIAL IM (10:43)
[2025-03-30] MEDS: HYDROMORPHONE 1 MG INJ IM (10:43)
[2025-03-30] MEDS: LIDOCAINE 2% INJ MDV 20ML 4 ML INJ (10:58)
[2025-03-30] MEDS: TRIAMCINOLONE 40 MG/ML VIAL INJ (10:58)
[2025-03-30 12:09] VITALS: PULSE 49; O2SAT 99
[2025-03-30 12:12] VITALS: BP 188/91; PULSE 87; O2SAT 94
[2025-03-30 12:15] VITALS: BP 152/80
[2025-03-30 12:17] VITALS: BP 152/80; PULSE 64; RESP 15; O2SAT 98
== END 2025-03-30 12:17 | disposition home or self-care (01) ==
PROVIDERS: Emergency Provider Family Medicine; PCP Internal Medicine
DX: M79.602 Pain in left arm (principal); M25.552 Pain in left hip
CPT/HCPCS: 20610; 73030; 96372; 99284; J1171; J1885